=== PATIENT | female | born 1945 | race Caucasian/White ===

== ENCOUNTER 2020-07-17 04:45 | Inpatient (IN) | payer OTHER ==
[~2020-07-17] VITALS: Ht 162.6 cm; Wt 98.9 kg
[2020-07-17 04:45] VITALS: BP 108/52
[~2020-07-17 04:45] MED LIST: AQUAPHOR OINTMEN1 E1 TOP; ASPIRIN EC81 M1 PO; BACTROBAN CREAM30 G1 TOP; BENADRYL25 MG PO; CARVEDILOL6.25 MG PO; CERAVE453 GM; CLARITIN10 MG PO; CLORPACTIN WCS-92 GM IRRIG; CORDARONE200 MG PO; COREG3.125 MG PO; COUMADIN 2 MG TA2 M1 PO; COUMADIN 4 MG TA4 M1 PO; COUMADIN 5 MG TA5 M1 PO; COZAAR 50 MG TA50 M1 PO; DIFLUCAN150 MG PO; DULCOLAX STOOL100 MG PO; DUONEB 2.5-0.5 M3 ML INH; FEOSOL325 M1 PO; FLONASE 0.05%50 MCG NASAL; FUROSEMIDE 40 M40 M1 PO; GLIPIZIDE ER10 MG PO; HALOBETASOL PRO15 GM; HUMULIN R100 UNIT/1 SUBQ; LIDOCAINE 22 %/30 GM; LISINOPRIL2.5 MG PO; NOVOLIN 70100 UNIT/1 SQ; NOVOLIN 70100 UNIT/1 SUBQ; NOVOLIN 70100 UNIT/5 SUBQ; NOVOLIN R100 UNIT/1; NYSTATIN-TRIAMC15 G1 TP; POTASSIUM20 PO; SENNA S TABLET1 EACH PO; SENOKOT-S TABL1 EACH PO; SINGULAIR 10 MG10 M1 PO; TOPICORT 0.25%15 GM TOP; TRIAMCINOLONE A80 G2; UREA CREAM 40%1 TUBE
[2020-07-17 05:11] LABS: CALCIUM 8.4 mg/dL (8.5-10.1); CREATININE 1.7 mg/dL (0.6-1.0); POTASSIUM 3.8 mmol/L (3.5-5.1)
[2020-07-17 05:17] LABS: ALBUMIN 2.1 g/dL (3.4-5.0); TOTAL BILIRUBIN 0.5 mg/dL (0.2-1.0); TOTAL PROTEIN 7.9 g/dL (6.4-8.2)
[2020-07-17 05:22] LABS: ABSOLUTE NEUTROPHILS 15.2 thou/uL (1.4-8.2); BASOPHILS 0.8 % (0.0-2.0); EOSINOPHILS 1.3 % (0.0-3.0); HEMATOCRIT 27.7 % (37.0-47.0); HEMOGLOBIN 9.1 gm/dL (12.0-15.0); LYMPHOCYTES 5.8 % (24.0-44.0); MCH 27.2 pg (26.0-34.0); MCV 82.5 fL (80.0-100.0); MONOCYTES 4.9 % (1.0-8.0); PLATELET COUNT 368 thou/uL (150-400); POLYS 87.2 % (36.0-66.0); RBC 3.35 mil/uL (4.20-5.00); RDW 15.2 % (10.5-14.5); WBC 17.4 thou/uL (4.0-11.0)
[2020-07-17 06:19] LABS: URINE BILIRUBIN NEGATIVE (Negative); URINE BLOOD 3+ (Negative); URINE CLARITY CLEAR; URINE COLOR YELLOW; URINE GLUCOSE-RANDOM* NEGATIVE (Negative); URINE KETONES NEGATIVE (Negative); URINE NITRITE-REFLEX NEGATIVE (Negative); URINE PROTEIN (DIPSTICK) TRACE (Negative); URINE SPECIFIC GRAVITY <= 1.005 (1.005-1.035); URINE UROBILINOGEN 0.2 E.U./dl (0.2-1.0)
[2020-07-17 06:26] LABS: URINE LEUKOCYTES-REFLEX 3+ (Negative)
[2020-07-17 07:02] LABS: CASTS None Seen /LPF (None Seen); SQUAMOUS 0-3 Few /LPF (0-3); URINE WBC-REFLEX >25 Many /HPF (0-5)
[2020-07-17 07:03] LABS: BACTERIA-REFLEX >30 Many /HPF (None Seen); CRYSTALS None Seen /LPF (None Seen); MUCUS 0-3 Light strn/LPF (None Seen); URINE RBC 3-10 Few /HPF (0-2); WBC CLUMPS Few (None Seen)
[2020-07-17 07:23] VITALS: BP 121/53
[2020-07-17] MEDS ORDERED: LANTUS SUBQ (07:31)
[2020-07-17 08:49] VITALS: BP 123/51
[2020-07-17 09:12] VITALS: BP 119/61
--- NOTE | 2020-07-17 11:47 | NUR ---
PT IS AOX4, VSS, REPORTS SOME DISCOMFORT WITH URINATION D/T UTI. PT HAS EXTERNAL CATH AT THIS TIME. ASSESSMENT & ADMISSION COMPLETED. APPETITE IS GOOD, NURSE EDUCATED, & PT ON HOW TO USE CALL LIGHT. WILL CONTINUE TO MONITOR.
--- NOTE | 2020-07-17 11:54 | NUR ---
PT ADMITTED RELATED TO UTI, HYPOGLYCEMIA. CM REVIEWED CHART AND SPOKE WITH CARE TEAM. CM CALLED AND SPOKE WITH PT OVER THE PHONE TODAY. PT APPEARED TO BE A&O X4. CM ROLE INTRODUCED. PT INDICATED SHE LIVES IN A HOUSE WITH HER SPOUSE WITH 1 STEP TO ENTER AND NO STEPS SHE USES INSIDE. 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 PT INDICATED SHE HAS HOME O2 THROUGH [employer] WITH 4L COPIER TECHNICIAN. PT INDICATED SHE HAS A BIPAP BUT THAT SHE HADN'T BEEN USING IT. PT INDICATED SHE HAS A SPECIALITY BED ORDERED BY HER DR. PCP IS DR. JOHNNY EDWARDS. PT INDICATED THAT HER SPOUSE IS ABLE TO ASSIST HER SHE USES IT IN THE HOME. PT HAD USED [facility] IN THE PAST. PT INDICATED SHE PLANS TO RETURN HOME ONCE MEDICALLY STABLE. CM TO FOLLOW INDICATED WITH DC PLANNING.
[2020-07-17 19:23] VITALS: BP 134/56
[2020-07-18 01:06] LABS: GLYCOHEMOGLOBIN (HGB A1C) 7.8 % (4.8-5.6)
[2020-07-18 06:37] VITALS: BP 135/69
[2020-07-18 07:21] LABS: ABSOLUTE NEUTROPHILS 9.5 thou/uL (1.4-8.2); BASOPHILS 0.2 % (0.0-2.0); EOSINOPHILS 2.5 % (0.0-3.0); MCH 26.6 pg (26.0-34.0); MCHC 32.1 g/dL (28.0-37.0); MONOCYTES 7.6 % (1.0-8.0); PLATELET COUNT 375 thou/uL (150-400); POLYS 79.7 % (36.0-66.0); RBC 3.38 mil/uL (4.20-5.00); RDW 15.6 % (10.5-14.5); WBC 11.9 thou/uL (4.0-11.0)
[2020-07-18 07:34] LABS: ALBUMIN 1.9 g/dL (3.4-5.0); CALCIUM 8.6 mg/dL (8.5-10.1); CREATININE 1.4 mg/dL (0.6-1.0); MAGNESIUM 2.1 mg/dL (1.8-2.4); POTASSIUM 3.7 mmol/L (3.5-5.1); TOTAL BILIRUBIN 0.3 mg/dL (0.2-1.0); TOTAL PROTEIN 7.2 g/dL (6.4-8.2)
--- NOTE | 2020-07-18 07:53 | NUR ---
Assumed pt care at 1900. A/OX4,pleasant. VSS. Denies pain on assessment. Fall precautions in place, calls approp for help. Pt's incontinent of bladder,purewick applied though leaking on and off at NOC. Oxygen in place at 4L/NC.
[2020-07-18 08:35] VITALS: BP 123/60
--- NOTE | 2020-07-18 08:59 | NUR ---
PT. BACK FROM SCAN AND ON UNIT, DENIES ANY PAIN AND PLEASANT OVERALL. FALL RISK DISCUSSED SHE SAID SHE WILL CALL FOR HELP IF NEEDED, CALL KATHY REVIEWED WITH HER. ICE WATER PROVIDED. DENIES ANY SOB ON 4L NC AND NO SIGN'S OF BEATHING ISSUES AT ALL. IV FLUSHED AND INTACT, NO SIGN'S OF INFILTRATION. REPOSTIONED IN BED AT THIS TIME, WATCHING TV. DISCUSSED HER UNRINATION AND HER EXTERNAL CATHETER IS IN PLACE, SUCTION IS ON AN DIN PLACE URINE IN DRAINAGE TUBE PRESENT. FREQUENT UTI'S SO DISCUSSED WHY WITH HER ANATOMY CHANGES, SHE UNDERSTOOD TOPIC.
--- NOTE | 2020-07-18 09:25 | HC ---
[facility] [place] [address] CONSULTATION Name: ISATU BAXTER Room #: 460- ADM IN M.R.#: [id number] Admission: 07/17/20 Attend Phys: Kaveh Turk MD Discharge: Date of : 43 Report #: [id number] THIS REPORT FOR: cc: Mathieu Shipley MD, Michael D. MD Al-Mubaslat, Ahmad MD ~ CC: Mathieu Turk DATE OF SERVICE: 07/17/2020 ENDOCRINE CONSULTATION NOTE CONSULTING PHYSICIAN: Dr. Turk. REASON FOR CONSULTATION: Hypoglycemia, type 2 diabetes mellitus. HISTORY OF PRESENT ILLNESS: This is a 74-year-old female patient whose medical background is significant for multiple medical issues including type 2 diabetes mellitus, diabetic neuropathy, congestive heart failure and pulmonary hypertension. The patient presented to [facility]'s ER after her had observed issues of confusion, shaking and decided to present to the ER, where she was found to be hypoglycemic. The patient was then admitted for further care and monitoring. The patient's history of type 2 diabetes mellitus dates back to over 40 years. Her most recent antidiabetic regimen consisted of human R insulin taken at 10 units before meals, but with a room for adjustment as per her blood glucose values. She is also on Lantus insulin 60 units q.p.m. The patient describes blood glucose values that have mostly been in the 120-200 mg/dL range with only infrequent issues pertaining to hypoglycemia that is typically moderate. The patient has not been hospitalized for hypoglycemia or severe hyperglycemia in the past. The patient's history is noted for diabetic retinopathy, as well as peripheral diabetic neuropathy requiring treatment with gabapentin. She does not have a history of CAD, but does have difficulties pertaining to congestive heart failure. She is known to have hypertension and is currently maintained on Lasix ____ mg b.i.d. and carvedilol 3.125 mg b.i.d. REVIEW OF SYSTEMS: CONSTITUTIONAL: Fatigue, tiredness, but not fever or chills or body weight changes. HEENT: Negative for sore throat, sinus pain or ear drainage. PULMONARY: Occasional shortness of breath and cough, but no hemoptysis. CARDIAC: History of CHF, lower extremity edema, but not chest pain or [facility] [address] [place] [address] CONSULTATION Name: ISATU BAXTER Room #: [facility] IN M.R.#: [id number] Admission: 07/17/20 Attend Phys: Kaveh Turk MD Discharge: Date of : 43 Report #: [id number] palpitations. GASTROINTESTINAL: Occasional abdominal discomfort and nausea, but no vomiting or major changes in bowel movement frequency. NEUROLOGY: Baseline difficulties with diabetic peripheral neuropathy, but no loss of consciousness, seizures or other major abnormalities. Otherwise, review of systems noncontributory other than those mentioned in HPI. PAST MEDICAL HISTORY: 1. Type 2 diabetes mellitus. 2. Hypertension. 3. Peripheral diabetic neuropathy. 4. Diabetic retinopathy. 5. CHF. 6. Rosacea. 7. Asthma. 8. Pulmonary hypertension. 9. Seasonal allergies. 10. Obstructive sleep apnea. 11. COPD. 12. History of cataract. 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 OUTPATIENT MEDICATIONS: Include KCl 40 mEq b.i.d., Lasix 80 mg b.i.d., human Regular insulin 10 units with meals, carvedilol 3.125 mg b.i.d., Senokot-S daily, Lantus insulin 60 units q.p.m., aspirin 81 mg daily, loratadine 10 mg daily. ALLERGIES: SULFA. FAMILY HISTORY: Noncontributory. SOCIAL HISTORY: The patient lives with her . Denies use of tobacco, alcohol or illicit drugs. PHYSICAL EXAMINATION: GENERAL: The patient is sitting upright in bed, appears comfortable, not in apparent distress. VITAL SIGNS: Blood pressure is 119/61 mmHg, heart rate is 75 beats per minute, respiration 18 per minute, temperature 36.6 degrees Celsius. CONSTITUTIONAL: She appears comfortable, not in apparent distress. HEENT: Anicteric sclerae. Intact extraocular motions. NECK: Supple, without thyromegaly. CHEST: Noted for distant breath sounds bilaterally. Scattered rales. No wheeze or crackles. HEART: Regular rate and rhythm without murmurs or gallops. ABDOMEN: Soft, lax with moderate epigastric tenderness to deep palpation as [facility] [address] [place] [address] CONSULTATION Name: ISATU BAXTER Room #: 460-P [facility] IN M.R.#: [id number] Admission: 07/17/20 Attend Phys: Kaveh Turk MD Discharge: Date of : 43 Report #: [id number] well as left upper quadrant discomfort. Active bowel sounds. No guarding. EXTREMITIES: Lower extremity exam is noted for stasis dermatitis bilaterally with +1 ankle edema bilaterally. No active skin ulceration. Pedal pulses are appreciated. Sensation to light touch is moderately diminished. NEUROLOGIC: Awake, alert and oriented to time, place and person. The remainder of her examination is mostly noted for peripheral sensory deficits. PSYCHIATRIC: Pleasant, interactive. Normal mood and affect. Normal thought process. LABORATORY RESULTS: On presentation, blood glucose was 56, most recently was at 168 mg/dL. Sodium 130, potassium 3.8, chloride 93, CO2 of 29, anion gap 8, BUN 47, creatinine 1.7, glucose 84, AST 201. Total bilirubin 0.5, calcium 8.4, phosphorus 3.3, magnesium 2.3, alkaline phosphatase 117, ALT 293. Total protein 7.9, albumin 2.1. EGFR 29. Lactic acid 1.2. INR 2.8. White blood count 17.4, hemoglobin 9.1, hematocrit 27.7, platelets 368. ASSESSMENT AND PLAN: 1. Hypoglycemia. The patient presented with an outlook consistent with severe hypoglycemia documented upon arrival to the ER. The patient was counseled extensively about the value of consistent insulin intake, routine blood glucose monitoring, and defensive behavior towards hypoglycemia. It does not appear that the patient has had frequent difficulty with hypoglycemia, nor a severe one over the past few months. The patient has done well since arrival and has progressively stabilized her blood glucose and is currently hypoglycemia-free. Blood glucose monitoring will continue routinely and hypoglycemia will be addressed as per the [facility] hypoglycemia protocol. Going forward, I believe that the initial step should include tapering down her Lantus at least 30% while we obtain a blood glucose data over the next few weeks to ensure stability. 2. Type 2 diabetes mellitus. The patient describes consistent reasonable control over the past few months without much hypoglycemia until her presenting event with hypoglycemia earlier today. I will check a hemoglobin A1c to get a better assessment of her overall level of control recently. Provided that the patient continues to be hypoglycemia-free, I will treat her tonight with 25 units of Lantus and cover her meals with 8 units of Humalog. The Humalog supplemental scale low intensity will be provided for coverage as needed a.c. and at bedtime. 3. Hypertension. The patient's level of blood pressure control is adequate on the current regimen, she is to continue with the same. I appreciate this consultation by Dr. Turk. <ELECTRONICALLY SIGNED> By: Josephine Day MD 07/18/20 0925 [id number] Josephine Day MD /nt
--- NOTE | 2020-07-18 12:43 | NUR ---
EXTERNAL CATHETER REPLACD IT WAS NOT COLLECTING CORRECTLY, LINEN CHANGES WELL. DENIES ANY PAIN AT PRESENT.
--- NOTE | 2020-07-18 14:20 | NUR ---
CARE TEAM INDICATED THAT PT IS PROGRESSING TOWARD GOAL OF DISCHARGE. OT INIDCATED THAT HEY ANTICIPATE THAT PT MAY BE ABLE TO RETURN HOME ONCE MEDICALLY STABLE. CM TO FOLLOW INDICATED WITH DC PLANNING.
[2020-07-18 20:39] VITALS: BP 116/58
--- NOTE | 2020-07-19 05:08 | NUR ---
Assumed pt care at 1900. A/OX4,VSS. Denies pain on assessment. Incontinent of urine,female external cath applied and patent. Pt is up with AX1 to WC,unsteady on feet. Fall precautions in place,resting w/o distress noted. Oxygen on at 4L/NC will continue to monitor pt.
[2020-07-19 07:10] VITALS: BP 109/50
[2020-07-19 11:04] VITALS: BP 109/50
[2020-07-19] MEDS ORDERED: CEFUROXIME500 MG PO (12:31)
[2020-07-19] MEDS ORDERED: LANTUS SUBQ (12:31)
[2020-07-19] MEDS ORDERED: FLOMAX0.4 MG PO (12:31)
[2020-07-19] MEDS ORDERED: HUMALOG100 UNIT/1 SUBQ (12:31)
--- NOTE | 2020-07-19 14:18 | NUR ---
CARE TEAM INDICATED THAT PT IS MEDICALLY STABLE TO DC HOME THIS DAY. PT WAS RECEPTIVE TO HAVING REFGERRAL SENT TO [facility] SHE HAD USED THEM IN THE PAST. CM ARRANGED [facility] BETWEEN [phone] WITH 4L O2. NO OTHER CM INTERVENTION INDICATED. CASE CLOSED.
--- NOTE | 2020-07-19 14:56 | NUR ---
Assumed pt care this am, VS stable. Edema on bilateral lower extremities noted. External schmitz in place draining light yellow urine, on 4 liters of O2 via NC. at the bed side, POC followed with no signs or verbalizations of distress noted. IV removed, POC followed with no signs or verbalizations of distress noted. Pt is now dc and went home with home health.
--- NOTE | 2020-07-19 15:42 | NUR ---
PT DISCHARGING TODAY TO HOME WITH [facility] FAXED DC ORDERS/SUMMARY SPOKE WITH WANDA IN INTAKE SHE RECEIVED ORDERS AND WILL NOTIFY PT TO ARRANGE VISITS.
== END 2020-07-19 15:03 | disposition home health service (06) | DRG 637 ==
LOC: ER 04:45 → 4W 08:48 → EROBS 08:51 → 4W 08:51
PROVIDERS: Emergency Medicine; Internal Medicine; ADMIT Internal Medicine; ATTEND Internal Medicine
DX: E11.649 Type 2 diabetes mellitus with hypoglycemia without coma (principal); G93.41 Metabolic encephalopathy; E43 Unspecified severe protein-calorie malnutrition; J96.11 Chronic respiratory failure with hypoxia; N39.0 Urinary tract infection, site not specified; I42.8 Other cardiomyopathies; N17.0 Acute kidney failure with tubular necrosis; I50.9 Heart failure, unspecified; I27.20 Pulmonary hypertension, unspecified; J45.909 Unspecified asthma, uncomplicated; J44.9 Chronic obstructive pulmonary disease, unspecified; E11.42 Type 2 diabetes mellitus with diabetic polyneuropathy; E11.319 Type 2 diabetes mellitus with unspecified diabetic retinopathy without macular edema; G47.33 Obstructive sleep apnea (adult) (pediatric); E66.01 Morbid (severe) obesity due to excess calories; G47.00 Insomnia, unspecified; K59.00 Constipation, unspecified; Z98.49 Cataract extraction status, unspecified eye; Z85.42 Personal history of malignant neoplasm of other parts of uterus; Z90.49 Acquired absence of other specified parts of digestive tract; Z88.2 Allergy status to sulfonamides; Z68.37 Body mass index [BMI] 37.0-37.9, adult; Z79.899 Other long term (current) drug therapy; Z79.82 Long term (current) use of aspirin
CPT/HCPCS: 10040